=== PATIENT | female | born 1960 | race American Indian/Alaskan Native ===

== ENCOUNTER 2016-11-13 11:20 | Inpatient (IN) | payer OTHER ==
[~2016-11-13] VITALS: Ht 170.2 cm; Wt 78.0 kg
[~2016-11-13 11:20] MED LIST: ANTIVERT25 MG PO; ASPIRIN EC325 MG PO; ASPIRIN EC81 MG PO; CALCIUM 600 +1 EA12 PO; CARDIZEM CD120 MG PO; DIALYVITE V5000 UNIT PO; DOCUSATE SODIU100 MG PO; FIORICET 50-301 EACH PO; LISINOPRIL10 MG PO; LO-DOSE ASPIRIN81 MG PO; MACROBID 100 M100 MG PO; NITROGLYCERIN0.4 MG SL; NITROSTAT0.4 MG SL; NORCO 5-325 TA1 EACH PO; OMEPRAZOLE20 MG PO; PROTONIX20 MG PO; REGLAN10 MG PO; TOPAMAX25 MG; TOPAMAX25 MG PO; TOPAMAX50 MG PO; VITAMIN D-32000 UNI1 PO; VITAMIN D35000 UNIT PO; XANAX0.5 MG PO; ZOFRAN ODT4 MG PO; ZOFRAN8 MG PO
[2016-11-19] MEDS ORDERED: LISINOPRIL5 MG PO (14:52)
--- NOTE | 2016-11-28 10:12 | NUR ---
11/28/16 1012 Basil Carson 0949 PATIENT AWAKENS, ORAL AIRWAY REMOVED, DR ESCOBEDO AT BEDSIDE
--- NOTE | 2016-11-28 11:09 | NUR ---
1030-PT ARRIVED TO [facility] RM 103 FROM PACU, TRANSFERRED TO BED WITH ASSIST, DENIES PAIN AT THIS TIME, TAKING SIPS OF WATER
--- NOTE | 2016-11-28 12:40 | NUR ---
1235-FAMILY AT BEDSIDE, PT WITH C/O ITCHING, PT DECLINED MEDS AT THIS TIME, DENIES PAIN
--- NOTE | 2016-11-28 14:45 | NUR ---
DULCE Hodges called to pt. bedside after respirations of 5 and 6 noted. Pt. easily arousable. Able to communicate effectively. No interventions initiated.
--- NOTE | 2016-11-28 14:50 | NUR ---
Pt. given oral ibuprofen after denying nausea. Within 3 min of taking medication and large drink of water, pt. nauseous. Approx 2 tsp of emesis. Pt. expresses relief of nausea.
--- NOTE | 2016-11-28 15:00 | NUR ---
O2 2 L NC applied to pt. due to saturations dropping into 80's when pt. sleeps. Pt. appears to still be very sleepy when not actively engaging. RT called to come evaluate pt.
--- NOTE | 2016-11-28 15:05 | NUR ---
RT at bedside. Decision made to decrease NC to 1 L. Pt. family back in room and encouraged to waken pt. if she seems to be sleeping too deeply. Call with any concerns. Family agreeable.
--- NOTE | 2016-11-28 15:30 | NUR ---
pt. vomited 300ml clear emesis. She states that she feels better now.
--- NOTE | 2016-11-28 16:52 | NUR ---
pt. respirations continue at 8/min while sleeping. NC continued at 1 L. Saturations continue in the upper 90's. Pt. does not appear to be in any kind of resp. distress. at bedside.
--- NOTE | 2016-11-28 17:15 | NUR ---
OLE Bergman notifed that pt. respirations ranging from 6-8 on average and pt. very sleepy. RT and float nurse both evaluated pt. Pt. currently on 1 L of O2 NC. Does not appear to be in respiratory distress. Ok to continue monitoring for now. Call back if respirations dip further. MD Corby aware of plan and agreeable.
--- NOTE | 2016-11-28 20:05 | NUR ---
PT ARRIVED TO ROOM [address] [facility], FOLLOWING A HYSTERECTOMY THIS AM. COMPLAINED OF NAUSEA, HAD LAST ZOFRAN THIS AFTERNOON. ABLE TO TRANSFER WITH ASSIST OF 2 FROM WHEELCHAIR TO HER BED. HAS A INDWELLING COWART, JUAN URINE. ALERT AND ORIETATED. [facility] RN, KAVITHA, STATED THAT PT RESPIRATIONS HAVE BEEN AROUND "8" HAD TO USE 1L 02 EARLIER IN THE AFTERNOON.
--- NOTE | 2016-11-28 21:13 | NUR ---
PT STATES HER NAUSEA HAS SUBSIDED. HAS TRIED TO EAT SOME RED SUGAR FREE JELLO, ATE 1/2. DENIES PAIN, AT BEDSIDE. HAS EXPRESSED WANTING TO WALK LATER, HAS FEELING IN BOTTOM OF FEET, DENIES TINGLING. MADONNA PAD CHANGED WITH SOME SERSANGUOUS DRAINAGE, COVERED THE MIDDLE OF THE PAD, APPROX 4 CM WORTH, DRY, NOT FRESH. CATH CONTINUES TO DRAIN YELLOW URINE. EXPLAINED TO PT THAT IF HER OXYGEN LEVELS DROP LESS THAN 92%, SHE WILL NEED TO WEAR SOME OXYGEN WHILE ASLEEP, CURRENT 02 WAS 93, SHE SAID YES THAT HAPPENED OVER THERE.
--- NOTE | 2016-11-28 22:00 | NUR ---
PT WATCHING TV, DENIES PAIN, AND NAUSEA. DRINKING WATER WITHOUT DIFFICTULITES.
--- NOTE | 2016-11-29 00:10 | NUR ---
PT IV ALARM SOUNDING. PT STATED SHE WAS SLEEPING AND THE MACHINE STARTED MAKING NOISE. DENIES PAIN OR NAUSEA. COWART CONTINUES WITH YELLOW URINE.
--- NOTE | 2016-11-29 02:05 | NUR ---
PT WOKE TO ASSESSMENT. DENIES DISCOMFORT AND NAUSEA. HAS BEEN DRINKING WATER. COWART WITH YELLOW URINE.
--- NOTE | 2016-11-29 03:38 | NUR ---
CHECKED IN ON PT. SHE STATES SHE HASN'T BEEN SLEEPING GOOD. JUST ISN'T MY BED. DENIES NAUSEA, OR PAIN. SCD'S IN PLACE. OFFERED REGGIE, SHE ACCEPTED. REFILLED HER WATER PITCHER WELL. DISCUSSED WITH PATIENT AMBULATING NEAR 0600 AND IF SHE TOLERATES WELL, WILL DC CATH AND SL HER IV FLUIDS. SHE AGREED, SAID SHE NORMALLY GETS UP AT THAT TIME.
--- NOTE | 2016-11-29 06:02 | NUR ---
ASSISTED PT UP TO SITTING POSITION, THEN UP TO STAND. AMBULATED AROUND THE ROOM WITH 1 PERSON ASSIST, TOLERATED WELL. NO DIZZINESS, OR NAUSEA TO REPORT. SAYS SHE CAN FEEL HER BOTTOM. BACK TO BED. VITALS DONE.
--- NOTE | 2016-11-29 06:22 | NUR ---
PT AWAKE, ON HER PHONE. PT HAS AMBULATED SHORT DISTANCE IN HER ROOM WITH ONE PERSON ASSIST. TAKING FLUIDS/JELLO, TOLERATING WITHOUT NAUSEA, SALINE LOCKED. COWART WITH YELLOW URINE. DENIES PAIN OR NAUSEA AT THIS TIME. SCD'S IN PLACE. PLANS TO ORDER BREAKFAST AFTER 7 AM.
--- NOTE | 2016-11-29 06:41 | NUR ---
REMOVED PT COWART PT TOLERATED AMBULATING IN ROOM. SHE WANTED TO CLEAN SELF, AND ACCIDENTLY PULLED ON THE PACKING SOME. DID NOT REMOVE ENTIRE PACKING BUT PACKING IS OUT SOME. REPLACED A SOILED MADONNA PAD, SCANT AMOUNT BLOOD. TOLERATED TASKS WITH COMPLAINTS.
--- NOTE | 2016-11-29 07:30 | NUR ---
PATIENT STARTED VOIDING TRIAL, DISCUSSED GETTING UP TO BATHROOM QHR TO VOID AND BLADDER SCANS TO FOLLOW.
[2016-11-29] MEDS ORDERED: VITAMIN D-32000 UNI1 PO (10:02)
--- NOTE | 2016-11-29 10:13 | NUR ---
PATIENT TAKES 1/2 OF SEVERAL MEDICATIONS DUE TO SIDE EFFECTS LIKE RACING HEART. PATIENT STATES THAT DR MARTINEZ HAS APPROVED THESE CHANGES IN HOME DOSES. MED REC COMPLETE WITH DESTINIHAWK REFILL HISTORY AND PATIENT INTERVIEW.
--- NOTE | 2016-11-29 10:42 | NUR ---
PATIENT VOIDING WELL, LARGE AMOUNTS OF CLEAR URINE. PAIN WELL CONTROLLED, UP INDEPENDANTLY IN ROOM. VS STABLE. BOWEL TONES ACTIVE, FULL BODY ASSESMENT DONE.
--- NOTE | 2016-11-29 11:45 | NUR ---
PATIENT UP TO BATHROOM, DRINKING LOTS OF WATER. DISCUSSED WITH PATIENT IMPORTANCE OF SLOWING DOWN AND NOT DRINKING SO MUCH TO IMPROVE RESIDUALS. PATIENT UP IN ROOM. PAIN WELL CONTROLLED WITH MOTRIN.
--- NOTE | 2016-11-29 11:49 | NUR ---
VISITORS JUST LEAVING, PT AND WELCOMED ME IN . RN SHERIE CAME IN [place] TO GIVE MEDS. PT SHARED SHE HOPES TO BE DC'D TODAY, WAITING FOR THE DR. SHE SHARED THAT SHE IS READY FOR HER OWN BED, THEN PROCEDED TO SHARE SOME OF HER LIFE WITH ME. THEY BOTH THANKED ME FOR COMING BY-EXTENDED A BLESSING
--- NOTE | 2016-11-29 15:15 | NUR ---
PATIENT GIVEN HER SCHEDULED MOTRIN PO, VOIDED 500 MLS OF CLEAR YELLOW URINE AND HAD 257 LEFT IN HER BLADDER.
--- NOTE | 2016-11-29 15:35 | NUR ---
UPDATED DOCTOR GREGG AT THIS TIME ON PATIENTS VOIDING AND RESIDUAL CHECKS.
--- NOTE | 2016-11-29 17:00 | NUR ---
PATIENT SITTING AT EDGE OF BED. CONTINUING VOIDING TRIAL. PATIENT NOT FULLY EMPTYING BLADDER, LARGER RESIDUALS. PATIENT STATES " I WANT TO GO HOME, I MISS MY OWN BED". PATIENT FOLLOWING HOME DIET. PAIN WELL CONTROLLED WITH MOTRIN.
--- NOTE | 2016-11-29 18:04 | NUR ---
DR. ESCOBEDO TO FLOOR TO ROUND. PATIENT WILL STAY ANOTHER NIGHT. TO DECREASE FLUID INTAKE AND UP TO BATHROOM MORE. PATIENT VERBALIZED UNDERSTANDING. DENIIES NEED FOR NORCO. PATIENT AMBULATING WELL TO BATHROOM AND INDEPENDANT IN ROOM.
--- NOTE | 2016-11-29 21:35 | NUR ---
PT REPORTS THAT SHE TAKES 25MG TOPAMAX TWICE DAILY, RATHER THAN 50MG ORDERED. PT'S MED REC CONFIRMS THIS [address] DOSE[address] ESCOBEDO WHO STATES TO CHANGE THE ORDER IN THE [facility].
--- NOTE | 2016-11-30 01:12 | NUR ---
PATIENT WITH 300ML URINE OUTPUT AND 589 POST VOID RESIDUAL. PATIENT DENIES FEELING ANY BLADDER PRESSURE OR FULLNESS. PER PATIENT "I HAVN'T BEEN DRINKING HARDLY ANY WATER." DISCUSSED WITH PATIENT INCREASING TIMES UP TO VOID.
--- NOTE | 2016-11-30 03:10 | NUR ---
PATIENT UP TO VOID - 300ML URINE OUTPUT WITH 488ML POST VOID RESIDIUAL. PATIENT DENIES PAIN. DENIES FEELING BLADDER PRESSURE.
--- NOTE | 2016-11-30 05:28 | NUR ---
PATIENT BLADDER SCANNED FOR POST VOID RESIDUALS THRU OUT THE NIGHT. PATIENT RETAINING LARGE AMOUNTS OF URINE. PATIENT HAS DECREASED HER PO INTAKE. DISCUSSED WITH PATIENT INCREASING FREQUENCY OF VOIDING TO HELP FACILITATE BLADDER EMPTYING. DENIED PAIN DURING THE NIGHT.
--- NOTE | 2016-11-30 08:17 | NUR ---
PT IS RESTIG SAFELY IN BED WITH CALL LIGHT IN REACH AND EYES CLOSED, RESPERATIONS EVEN
--- NOTE | 2016-11-30 09:00 | NUR ---
DR. ESCOBEDO TO ROOM ROUNDING, PATIENT TO VOID Q1 HR WITH PVR. IF DOES NOT IMPROVE, COWART WILL BE PLACED. POSSIBLE DISCHARGE HOME WITH COWART CATH.
--- NOTE | 2016-11-30 10:38 | NUR ---
PT WALKED TO BATHROOM, WHERE SHE WASHED HER FACE AND BRUSHED HER TEETH. PT THEN RETURNED TO BED, RESTING SAFELY WITH CALL LIGHT IN REACH. PT ASKED FOR ICE WATER.
--- NOTE | 2016-11-30 11:30 | NUR ---
PATIENT VOIDING WELL, GOOD RESIDUALS. VS STABLE. DR. ESCOBEDO VERBALIZED PATIENT ABLE TO DISCHARGE HOME.
[2016-11-30] MEDS ORDERED: NORCO 5-325 TA1 EACH PO (11:58)
[2016-11-30] MEDS ORDERED: SENNA-S TABLET1 EACH PO (11:59)
[2016-11-30] MEDS ORDERED: IBUPROFEN800 MG PO (11:59)
[2016-11-30] MEDS ORDERED: KONDREMUL2.5 ML/5 M PO (11:59)
--- NOTE | 2016-12-09 21:03 | OR ---
[facility] [address], [place] [address] Signed DATE OF PROCEDURE: 11/28/16 SURGEON: Randolph Tavarez MD LINUX ENGINEER: Kyle Burgos MD PREOPERATIVE DIAGNOSIS: Uterovaginal prolapse. POSTOPERATIVE DIAGNOSIS: Uterovaginal prolapse. PROCEDURES Total vaginal hysterectomy, bilateral salpingectomy, uterosacral plication, cystocele repair with dermis reinforcement, cystoscopy, rectocele repair with dermis reinforcement. ANESTHESIA: Spinal with IV sedation. ESTIMATED BLOOD LOSS: 200 mL. DRAINS: Jameson catheter. PACKS: Vaginal. INDICATIONS AND FINDINGS The patient is a 55-year-old female, 4, para 4, who is menopausal and has been having worsening problems with vaginal prolapse. She has vaginal bulging as well as urinary hesitancy. She denies any stress incontinence. At the time of surgery, she had the cervix presenting almost to the hymen. The cystocele was grade 3. She had a grade 2 rectocele. The ovaries and tubes appeared normal. DESCRIPTION OF PROCEDURE The patient was prepped and draped in the dorsal lithotomy position. A weighted speculum was placed. The anterior and posterior cervix were grasped with single-tooth tenaculums and the cervix injected with 1% Lidocaine with 1: 200,000 Epinephrine to a volume of 10 mL. The posterior cul-de-sac was then opened sharply. The swan neck speculum was replaced into the cul-de- sac. The uterosacral ligaments were grasped on each side using the curved Z clamps, divided with the Castellano scissors and suture ligated with 0 Vicryl. The vaginal mucosa was then circumscribed with a knife and sharp dissection was used to push the vaginal mucosa up off the cervix. The anterior peritoneum was opened sharply at this point. The cardinal ligament areas were grasped on each side using the curved Z clamps taking care to incorporate both the anterior and posterior leaves of the peritoneum. These were divided with Castellano scissors and suture ligated with 0 Vicryl. This was done on each side taking next the uterine vessel areas and the lower portion of the Electronically Signed By: RANDOLPH TAVAREZ MD 12/09/16 2103 PATIENT NAME: NASIR BANKS OPERATIVE REPORT DATE OF : 56 PHYSICIAN: RANDOLPH TAVAREZ MD REPORT #: [id number] REPORT IS CONFIDENTIAL AND NOT TO BE RELEASED WITHOUT AUTHORIZATION [facility] [address], [place] [address] Signed broad ligament areas with each of these divided with the Castellano scissors and suture ligated with 0 Vicryl. At this point, the remaining broad ligament pedicles could be grasped and clamped across. These were incised. This was followed by free tie of 0 Vicryl followed by a suture ligature of 0 Vicryl. Following this, the tubes were identified and grasped with Yahaira clamps and clamped across with a curved Z clamp and excised. This was followed by free ties of 0 Vicryl. Following this, the cuff was serially inspected. There was some bleeding from the posterior cul-de-sac and several ncopat-sq-jecoj sutures of 0 Vicryl were placed bringing the peritoneum to the cuff. There was some bleeding near the vaginal mucosal areas on each side. An additional lviqgn-at-jarle was required near the uterine vessel area on the patient's right. Following this, the cuff appeared to be hemostatic. Because of the poor vaginal cuff support, the uterosacral ligaments were plicated. This was done using 0 Ethibond sutures. The suture entered the left uterosacral ligament and then reefed across the posterior peritoneum and exited via the opposite uterosacral ligament. Three of these sutures were placed and tied. Following this, a Moya suture was also placed using a 0 Vicryl suture. This came through the uterosacral ligament reefing across the posterior peritoneum and exiting via the opposite uterosacral ligament for use later. Angle sutures of 0 Vicryl were then placed incorporating the vaginal mucosa, exteriorizing the broad ligament pedicles, coming across the peritoneum anteriorly and exiting via the uterosacral ligament inferiorly. These were tied laterally and this was done bilaterally. The peritoneum was then closed with a lofcdh-vf-lzygm suture of 3-0 Vicryl. The cuff itself was closed with a running locking stitch of 0 Vicryl. The Moya suture was then tied as well. Following this, there remained a significant cystocele. The vaginal mucosa was then incised in the midline. The vaginal mucosa was from the underlying tissue with a combination of blunt and sharp dissection and this was done laterally. The pubovesical fascia was identified and interrupted sutures of 0 Vicryl were placed plicating the fascia. Following this, a graft of the dermis, which had been prepared according to the package directions and trimmed into a rectangle shape was sutured over the repair with interrupted sutures of 2-0 Vicryl. This was to aid in reinforcement as the tissue was fairly poor. Following this, cystoscopy was done. The Jameson catheter was removed and initially the 30-degree scope was used. The patient had received fluorescein. The ureteral orifices were not seen well with the 30-degree scope and this was replaced by the 70-degree scope. At this point, free spill of the fluorescein stained urine was seen coming from each of the ureteral orifices. There was no evidence of any bladder injury. Following this, the cystoscopy was completed and the bladder was drained. The Jameson catheter replaced. At this point, the vaginal mucosa was trimmed to a significant amount because of the redundancy. The vaginal mucosa was closed with a running suture of 2-0 Vicryl. Following this, the rectocele repair was begun. A triangle of tissues removed from the Electronically Signed By: RANDOLPH TAVAREZ MD 12/09/16 2103 PATIENT NAME: NASIR BANKS OPERATIVE REPORT DATE OF : 56 PHYSICIAN: RANDOLPH TAVAREZ MD REPORT #: [id number] REPORT IS CONFIDENTIAL AND NOT TO BE RELEASED WITHOUT AUTHORIZATION [facility] [address] [place], [place] [address] Signed perineal body. The vaginal mucosa was then undermined and incised in the midline. This was done to the apex of the vagina. The vaginal mucosa was then from the underlying tissue with a combination of blunt and sharp dissection. This was carried out to the sacrospinous ligaments on each side. A 0 Vicryl suture was placed using the Capio device in the sacrospinous ligaments on each side for use l a ter. The perirectal fascial type tissue was then reapproximated with interrupted sutures of 0 Vicryl. This tissue was of poor quality. Following this, a rectal examination was done, which confirmed that there was good reduction of the defect and no sutures compromising the rectal lumen. Dermis which had been trimmed into a T-shirt type shape was then sutured at the arms to the sutures at the sacrospinous ligament. These were tied down with appropriate tension. Following this, the graft itself was ta c ked into place with interrupted sutures of 2-0 Vicryl. This was done across the top of the graft, at the arm holes, and down the sides. Another rectal examination was done, which confirmed good reduction of the defect and no sutures compromising the rectal lumen. Following this, FloSeal was injected around the sacrospinous ligaments on each side to aid in hemostasis. The vaginal mucosa was then trimmed quite a bit as there was significant redundancy. The vaginal mucosa was then closed from the apex of the vagina to the hymenal ring with a running suture of 2-0 Vicryl. Following this, the perineal body was recreated with interrupted sutures of 2-0 Vicryl. The posterior fourchette was recreated with a running suture of 2-0 Vicryl. The skin of the perineum was closed with interrupted sutures of 2-0 Vicryl placed in a subcuticular manner. Inspection of the vault showed good length and caliber. There was good hemostasis noted. The vaginal canal was then packed with sulfa-coated gauze. She was then taken to the recovery room in good condition. All sponge and needle counts were correct. Randolph Tavarez MD PJW/Modl /[id number] cc: MD Vineet Liao MD Electronically Signed By: RANDOLPH TAVAREZ MD 12/09/16 2103 PATIENT NAME: NASIR BANKS OPERATIVE REPORT DATE OF : 56 PHYSICIAN: RANDOLPH TAVAREZ MD REPORT #: [id number] REPORT IS CONFIDENTIAL AND NOT TO BE RELEASED WITHOUT AUTHORIZATION
== END 2016-11-30 12:35 | disposition home or self-care (01) | DRG 743 ==
LOC: DSVR 11-28 05:55 → MS 11-28 05:55 → FBC 11-28 10:30 → MS 11-28 19:45
PROVIDERS: ADMIT Obstetrics & Gynecology
PROC: 0UTC7ZZ Resection of Cervix, Via Natural or Artificial Opening (ICD-10-PCS; 2016-11-28)
PROC: 0UT70ZZ Resection of Bilateral Fallopian Tubes, Open Approach (ICD-10-PCS; 2016-11-28)
PROC: 0JQC0ZZ Repair Pelvic Region Subcutaneous Tissue and Fascia, Open Approach (ICD-10-PCS; principal; 2016-11-28 06:45)
PROC: 0UT97ZZ Resection of Uterus, Via Natural or Artificial Opening (ICD-10-PCS; 2016-11-28 06:45)
DX: N81.2 Incomplete uterovaginal prolapse (principal); N72 Inflammatory disease of cervix uteri; N88.8 Other specified noninflammatory disorders of cervix uteri; R11.0 Nausea
CPT/HCPCS: 00944; 36415; 51798; 80048; 85025; C1762; C2631; J0694; J1100; J1644; J1885; J2250; J2274; J2300; J2405; J2704; J2765; J3010; J7120

== ENCOUNTER 2023-02-21 05:58 | Day surgery (SDC) | payer OTHER ==
[2023-02-13 10:14] VITALS: BP 140/80
--- NOTE | 2023-02-13 10:42 | NUR ---
PT REPORTED THAT SHE HAD LABS, AND EKG COMPLETED IN JANUARY OF 2023. CALLED [facility] AND RECEIVED COPY AFTER PT LEFT AND IT WAS FROM 2019. THEN CALLED TO [facility] TO HAVE LAB AND MOST CURRENT EKG SENT AND THEY WHERE FROM MAY OF 2022. CALL INTO PT AND EXPLAINED THAT SHE WOULD NEED A EKG AND LAB THIS MONTH AND SENT ORDER TO [facility] AND TALKED WITH RADHA.
[~2023-02-21] VITALS: Ht 170.2 cm; Wt 98.2 kg
[~2023-02-21 05:58] MED LIST changes: +ASPERCREME1 EACH TP; +IBUPROFEN800 MG PO; +KONDREMUL2.5 ML/5 M PO; +LISINOPRIL5 MG PO; +SENNA-S TABLET1 EACH PO
[2023-02-21 06:13] VITALS: BP 155/68
[2023-02-21] MEDS ORDERED: OMEPRAZOLE40 MG PO (06:20)
[2023-02-21] MEDS ORDERED: CELECOXIB200 MG PO (06:20)
--- NOTE | 2023-02-21 07:18 | NUR ---
DS ROUNDS. PT INDICATED VERY TIRED. CONSENTED TO PRAYER. PROVIDED PRAYER. SHORT VISIT.
--- NOTE | 2023-02-21 08:03 | NUR ---
02/21/23 0803 Mary Carranza 0751 PT TO PACU SLEEPING O2 VIA NASAL CANNULA. BREATHING REGULAR AND UNLABORED.
[2023-02-21 08:13] VITALS: BP 127/73
--- NOTE | 2023-02-21 08:41 | OR ---
[facility] [address], [place] [address] Signed DATE OF OPERATION: 02/21/2023 SURGEON: Sandra Ruggiero MD PREOPERATIVE DIAGNOSES: 1. Screening. 2. Unremarkable colonoscopy x3. POSTOPERATIVE DIAGNOSIS: Xtfylll-sa-yfxothan sigmoid diverticulosis. PROCEDURE: Colonoscopy without biopsy. ESTIMATED BLOOD LOSS: None. INDICATIONS: Nasir is a 62-year-old female, asked to see me for a screening colonoscopy. In her mid to late 50s, she was having terrible abdominal troubles, not able to eat. She lost a significant amount of weight. She underwent three separate negative colonoscopy. One occurred in [place], [place] and the other two were in the [facility]. She eventually made our way up to [facility] in [place], [place]. 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 After the surgery she said she has been much better. She was going to bring those records, but she forgot once again. Currently, she has no lower GI complaints. There is no family history of colon cancer or polyps. In the office, I gave her a pamphlet on colonoscopy. We went over that together. She understands there is risk including, but not limited to gas bloating, crampy abdominal pain, bleeding, perforation requiring surgery, and missed diagnosis. We also reviewed the written instructions for the bowel prep line by line. She also understands the need for monitored anesthesia care given her body habitus and her medical issues including her paroxysmal atrial fibrillation and bradycardia. She had expressed understanding and wished to proceed. PROCEDURE IN DETAIL: Nasir was taken into our endoscopy suite and placed in the left lateral decubitus position. She was given monitored anesthesia care with propofol infusion per our nurse territory sales professional. A digital rectal exam was performed and this was unremarkable. There were no external hemorrhoids. She had good sphincter tone. There were no masses. The adult colonoscope was introduced and advanced all around into the cecum under direct Electronically Signed By: SANDRA RUGGIERO MD 02/21/23 0841 PATIENT NAME: NASIR BANKS OPERATIVE REPORT DATE OF : 56 REPORT #: [id number] PHYSICIAN: SANDRA RUGGIERO MD PCP: OMAIRA VOGEL MD REPORT IS CONFIDENTIAL AND NOT TO BE RELEASED WITHOUT AUTHORIZATION [facility] [address], [place] [address] Signed visualization of camera without difficulty. Her prep was quite excellent. We could easily see the appendiceal orifice and ileocecal valve. The scope was then slowly withdrawn. We found diverticula in the sigmoid colon. They were moderate in size, few in number and scattered about. There were no polyps. Rectum was unremarkable. Upon retroflexion of scope, there was no additional pathology noted above the anal canal. After this, the gas was suctioned out, colonoscope removed. Nasir tolerated the procedure quite well. RECOMMENDATIONS: Nasir is welcome to return in 10 years for repeat screening colonoscopy so long as her health holds up. Sandra Ruggiero MD ALB/MODL /[id number] cc: MD Dr. Omaira Abdi [facility] Copies: SANDRA RUGGIERO MD ~ Electronically Signed By: SANDRA RUGGIERO MD 02/21/23 0841 PATIENT NAME: NASIR BANKS OPERATIVE REPORT DATE OF : 56 REPORT #: [id number] PHYSICIAN: SANDRA RUGGIERO MD PCP: OMAIRA VOGEL MD REPORT IS CONFIDENTIAL AND NOT TO BE RELEASED WITHOUT AUTHORIZATION
== END 2023-02-21 08:30 | disposition home or self-care (01) ==
LOC: OPS 05:58 → DS 05:58 → OPS 07:30 → DS 08:15 → OPS 08:30
PROVIDERS: ATTEND Colon & Rectal Surgery
PROC: 0DJD8ZZ Inspection of Lower Intestinal Tract, Via Natural or Artificial Opening Endoscopic (ICD-10-PCS; principal; 2023-02-21 07:30)
DX: Z12.11 Encounter for screening for malignant neoplasm of colon (principal); K57.30 Diverticulosis of large intestine without perforation or abscess without bleeding; L21.9 Seborrheic dermatitis, unspecified; I48.0 Paroxysmal atrial fibrillation; E78.5 Hyperlipidemia, unspecified; I12.9 Hypertensive chronic kidney disease with stage 1 through stage 4 chronic kidney disease, or unspecified chronic kidney disease; N18.30 Chronic kidney disease, stage 3 unspecified; E66.9 Obesity, unspecified; Z68.34 Body mass index [BMI] 34.0-34.9, adult; Z88.1 Allergy status to other antibiotic agents; Z79.899 Other long term (current) drug therapy
CPT/HCPCS: G0121; J2001; J2704; J7121